=== PATIENT | male | born 1960 | race Caucasian/White ===

== ENCOUNTER 2017-07-05 21:00 | Emergency (ER) | payer MEDICAID, OTHER ==
[2017-07-05 21:18] VITALS: BMI 39.1
[2017-07-05 21:20] VITALS: TEMP 98
[2017-07-05] MEDS ORDERED: Naproxen 550 mg Tab PO STA (22:02)
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
[2017-07-05] MEDS: Albuterol-Ipratrop 3 mg / 0.5 (3 ml) UD IH SCH ×2 (23:40→23:59)
[2017-07-06] VITALS: BP 136/82; PULSE 83; RESP 17; O2SAT 99
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
== END 2017-07-06 00:03 | disposition home or self-care (01) ==
LOC: ED 21:00
DX: S16.1XXA Strain of muscle, fascia and tendon at neck level, initial encounter (principal); S29.012A Strain of muscle and tendon of back wall of thorax, initial encounter; S43.402A Unspecified sprain of left shoulder joint, initial encounter; V49.49XA Driver injured in collision with other motor vehicles in traffic accident, initial encounter; Y92.410 Unspecified street and highway as the place of occurrence of the external cause